=== PATIENT | male | born 1995 | race Caucasian/White ===

== ENCOUNTER → 2022-11-16 | Outpatient (CLI) | payer OTHER ==
--- NOTE | 2022-11-16 12:36 | CT ---
EXAMINATION TYPE: CT brain wo/w con CT DLP: 2072 mGycm, Automated exposure control for dose reduction was used. DATE OF EXAM: 11/16/2022 12:27 PM COMPARISON: None. CLINICAL INDICATION:Male, 27 years old with history of S01.93XA; PHH, seizures, hx of head trauma TECHNIQUE: Axial CT images of the brain were obtained followed by contrast enhanced axial images of t he brain with 100 cc of ISO-view 300 IV contrast. One or more CT dose reduction strategies were utili zed during this examination. Coronal and sagittal reformats reviewed. FINDINGS: Extra-axial spaces: No abnormal extra-axial fluid collections. Ventricular system: Within normal limits Cerebral parenchyma: No acute intraparenchymal hemorrhage or mass effect. The gilliland-white junction is well differentiated. No abnormal enhancement is seen after the administration of intravenous contras t. Cerebellum: Unremarkable. Mass effect: No evidence of midline shift. Intracranial vasculature: unremarkable Soft tissues: Normal. Calvarium/osseous structures: No acute fracture. Extensive postsurgical changes of the face with fixa tion hardware demonstrated. Metallic shrapnel identified within the central facial soft tissues and. Paranasal sinuses and mastoid air cells: The mastoid cells are clear. Likely [address] retention [address] within the right sphenoid sinus. There is opacification of the left anterior ethmoid sinus with so ft tissue. Visualized orbits: Orbital contents are intact. IMPRESSION: 1. No acute intracranial process and no evidence to suggest intracranial mass. 2. Extensive postsurgical changes of the face with fixation hardware demonstrated. If prior imaging c ould be made available, comparison could be made.
== END | disposition home or self-care (01) ==
LOC: RADCTMAIN 11:42
PROVIDERS: ATTEND Psychiatry & Neurology Neurology
DX: S01.93XA Puncture wound without foreign body of unspecified part of head, initial encounter (principal); G40.A19 Absence epileptic syndrome, intractable, without status epilepticus
CPT/HCPCS: 70470; Q9967

== ENCOUNTER → 2024-01-03 | Outpatient (CLI) | payer OTHER ==
--- NOTE | 2024-01-23 11:40 | CT ---
EXAMINATION TYPE: CT lumbar spine wo con DATE OF EXAM: 01/03/2024 COMPARISON: None HISTORY: Pain Unenhanced CT of the lumbar spine was performed. Bone and soft tissue window settings are submitted as well as coronal and sagittal reconstructions. L1-L2: Normal disc space height. No disc herniation protrusion or central stenosis. No facet joint arthropathy. No evidence for foraminal encroachment. L2-L3: Normal disc space height. No disc herniation protrusion or central stenosis. No facet joint arthropathy. No evidence for foraminal encroachment. L3-L4: Normal disc space height. No disc herniation protrusion or central stenosis. No facet joint arthropathy. No evidence for foraminal encroachment. L4-L5: Normal disc space height. No disc herniation protrusion or central stenosis. No facet joint arthropathy. No evidence for foraminal encroachment. L5-S1: Mild degenerative disc space narrowing. Grade 1 anterolisthesis measuring 5 mm L5 on S1. Poste rior disc bulge without herniation, central stenosis or lateral recess stenosis. Mild left foraminal encroachment. No paraspinal masses are identified. Lumbar segments are free if fracture. IMPRESSION: 1. Grade 1 anterolisthesis L5 on S1 with degenerative change and disc bulging is noted.
--- NOTE | 2024-01-23 11:41 | CT ---
EXAMINATION TYPE: CT cervical spine wo con DATE OF EXAM: 01/03/2024 COMPARISON: None HISTORY: Pain Unenhanced CT of the cervical spine was performed with bone and soft tissue window settings submitted . Coronal and sagittal reconstruction is obtained. There is normal alignment and prevertebral soft tissues. Mild degenerative disc space narrowing and ventral spondylosis at C4-5 and C5-6. No evidence for disc herniation, protrusion or central stenosis. Foramina are patent bilaterally. I do not see e vidence for fracture or subluxation. No significant degenerative changes are present. The lung apic es are clear IMPRESSION: No evidence for fracture or subluxation of the cervical spine.
== END | disposition home or self-care (01) ==
LOC: RADCTMAIN 09:30
PROVIDERS: ATTEND Psychiatry & Neurology Neurology
DX: M47.812 Spondylosis without myelopathy or radiculopathy, cervical region (principal); M47.816 Spondylosis without myelopathy or radiculopathy, lumbar region; M51.36 Other intervertebral disc degeneration, lumbar region; M43.17 Spondylolisthesis, lumbosacral region
CPT/HCPCS: 72125; 72131